=== PATIENT | female | born 1945 | race Caucasian/White ===

== ENCOUNTER 2016-12-06 18:00 | Inpatient (IN) | payer OTHER ==
[~2016-12-06] VITALS: Ht 165.1 cm; Wt 48.1 kg
[2016-12-06] MEDS ORDERED: LANTUS SOLOS100 U/M1 SQ (20:24)
[2016-12-06] MEDS ORDERED: GLIPIZIDE2.5 M1 PO (20:24)
[2016-12-06] MEDS ORDERED: SIMVASTATIN20 M1 PO (20:25)
[2016-12-06] MEDS ORDERED: OMEPRAZOLE40 M1 PO (20:25)
[2016-12-06 21:04] LABS: BASOPHIL % 0.1 % (0-2); PLATELET COUNT 228 x10^3mcL (130-400); RED CELL DISTRIBUTION WIDTH 14.1 % (11.5-14.5)
[2016-12-06 21:17] LABS: CALCIUM 9.4 mg/dL (8.5-10.1); CHLORIDE SERUM 104 mmol/L (98-107); CREATININE SERUM 2.6 mg/dL (0.6-1.0); GLUCOSE SERUM 296 mg/dL (74-106); POTASSIUM SERUM 3.3 mmol/L (3.5-5.1); SODIUM SERUM 140 mmol/L (136-145)
[2016-12-06 21:20] LABS: ALBUMIN 3.8 g/dL (3.4-5.0); ALKALINE PHOSPHATASE 90 U/L (46-116); ALT/SGPT 25 U/L (14-59); AST/SGOT 27 U/L (15-37); BILIRUBIN TOTAL 0.78 mg/dL (0.20-1.00); TOTAL PROTEIN, SERUM 7.6 g/dL (6.4-8.2)
[2016-12-06 21:26] LABS: MAGNESIUM 2.2 mg/dL (1.8-2.4); PHOSPHOROUS 3.6 mg/dL (2.5-4.9)
[2016-12-06 21:28] LABS: FREE T4 1.4 ng/dL (0.76-1.46); FREE THYROXINE INDEX 3.9 ug/dL (1.4-4.5); T4(THYROXINE) 11.7 ug/dL (4.7-13.3)
[2016-12-06 21:29] LABS: CHOLESTEROL/HDL RATIO 1.9
[2016-12-06 21:38] VITALS: BP 162/83
[2016-12-06 21:44] LABS: T3 TOTAL 0.78 ng/mL
[2016-12-06 22:10] VITALS: BP 162/83
[2016-12-06 22:34] LABS: UA SPECIFIC GRAVITY <=1.005 (1.005-1.035); microscopic required? YES; urine erythrocyte 1+ (NEGATIVE)
[2016-12-06 23:08] LABS: AMPHETAMINE QUAL UR NONE DETECTED (NEG <=1000)
[2016-12-07 05:19] VITALS: BP 141/74
[2016-12-07 06:35] LABS: BASOPHIL % 0.2 % (0-2); PLATELET COUNT 210 x10^3mcL (130-400); RED CELL DISTRIBUTION WIDTH 13.6 % (11.5-14.5)
[2016-12-07 06:38] LABS: CALCIUM 8.9 mg/dL (8.5-10.1); CHLORIDE SERUM 106 mmol/L (98-107); CREATININE SERUM 2.3 mg/dL (0.6-1.0); GLUCOSE SERUM 203 mg/dL (74-106); MAGNESIUM 2.1 mg/dL (1.8-2.4); PHOSPHOROUS 4.2 mg/dL (2.5-4.9); POTASSIUM SERUM 3.5 mmol/L (3.5-5.1); SODIUM SERUM 141 mmol/L (136-145)
[2016-12-07 08:16] VITALS: BP 136/75
[2016-12-07 11:14] VITALS: BP 121/68
[2016-12-07 17:15] VITALS: BP 111/63
[2016-12-07 20:33] VITALS: BP 85/48
[2016-12-08 05:12] VITALS: BP 135/73
[2016-12-08 10:00] VITALS: BP 119/63
[2016-12-08 14:00] VITALS: BP 114/57
[2016-12-08 18:07] VITALS: BP 137/71
[2016-12-08 21:28] VITALS: BP 103/60
[2016-12-09 05:42] VITALS: BP 107/55
[2016-12-09 06:42] LABS: CALCIUM 7.8 mg/dL (8.5-10.1); CARBON DIOXIDE 24.5 mmol/L (21-32); CHLORIDE SERUM 111 mmol/L (98-107); CREATININE SERUM 2.1 mg/dL (0.6-1.0); GLUCOSE SERUM 156 mg/dL (74-106); MAGNESIUM 1.9 mg/dL (1.8-2.4); PHOSPHOROUS 2.9 mg/dL (2.5-4.9); SODIUM SERUM 144 mmol/L (136-145)
[2016-12-09 07:35] LABS: BASOPHIL % 0.3 % (0-2); PLATELET COUNT 172 x10^3mcL (130-400); RED CELL DISTRIBUTION WIDTH 14.4 % (11.5-14.5)
[2016-12-09 09:48] VITALS: BP 96/54
[2016-12-09 11:05] VITALS: BP 103/55
[2016-12-09 17:49] VITALS: BP 149/60
[2016-12-09 17:51] VITALS: BP 101/45
[2016-12-09 22:41] VITALS: BP 146/77
[2016-12-10 05:14] VITALS: BP 114/71
[2016-12-10 06:04] LABS: BASOPHIL % 0.1 % (0-2); PLATELET COUNT 171 x10^3mcL (130-400); RED CELL DISTRIBUTION WIDTH 14.2 % (11.5-14.5)
[2016-12-10 06:25] LABS: CALCIUM 7.9 mg/dL (8.5-10.1); CARBON DIOXIDE 19.3 mmol/L (21-32); CHLORIDE SERUM 109 mmol/L (98-107); CREATININE SERUM 1.9 mg/dL (0.6-1.0); GLUCOSE SERUM 214 mg/dL (74-106); MAGNESIUM 1.7 mg/dL (1.8-2.4); PHOSPHOROUS 3.2 mg/dL (2.5-4.9); POTASSIUM SERUM 3.9 mmol/L (3.5-5.1); SODIUM SERUM 141 mmol/L (136-145)
[2016-12-10 09:17] VITALS: BP 141/60
[2016-12-10 13:18] VITALS: BP 146/73
[2016-12-10 17:06] VITALS: BP 120/68
[2016-12-10 21:18] VITALS: BP 106/50
[2016-12-11 06:11] LABS: CALCIUM 7.7 mg/dL (8.5-10.1); CARBON DIOXIDE 20.6 mmol/L (21-32); CHLORIDE SERUM 107 mmol/L (98-107); CREATININE SERUM 1.9 mg/dL (0.6-1.0); GLUCOSE SERUM 183 mg/dL (74-106); MAGNESIUM 2.5 mg/dL (1.8-2.4); PHOSPHOROUS 2.3 mg/dL (2.5-4.9); POTASSIUM SERUM 3.7 mmol/L (3.5-5.1); SODIUM SERUM 138 mmol/L (136-145)
[2016-12-11 06:47] VITALS: BP 117/61
[2016-12-11 07:07] LABS: BASOPHIL % 0.2 % (0-2); PLATELET COUNT 171 x10^3mcL (130-400); RED CELL DISTRIBUTION WIDTH 14.1 % (11.5-14.5)
[2016-12-11 10:05] VITALS: BP 101/50
[2016-12-11 14:06] VITALS: BP 129/85
[2016-12-11 17:38] VITALS: BP 120/61
[2016-12-11 21:56] VITALS: BP 128/65; BP 142/70
[2016-12-12 06:03] VITALS: BP 121/64
[2016-12-12 06:48] LABS: BASOPHIL % 0.3 % (0-2); PLATELET COUNT 195 x10^3mcL (130-400); RED CELL DISTRIBUTION WIDTH 14.1 % (11.5-14.5)
[2016-12-12 06:59] LABS: CALCIUM 8.2 mg/dL (8.5-10.1); CARBON DIOXIDE 22.3 mmol/L (21-32); CHLORIDE SERUM 104 mmol/L (98-107); CREATININE SERUM 1.8 mg/dL (0.6-1.0); GLUCOSE SERUM 198 mg/dL (74-106); MAGNESIUM 2.2 mg/dL (1.8-2.4); PHOSPHOROUS 2.5 mg/dL (2.5-4.9); POTASSIUM SERUM 4.4 mmol/L (3.5-5.1); SODIUM SERUM 130 mmol/L (136-145)
[2016-12-12 09:00] VITALS: BP 127/63
[2016-12-12] MEDS ORDERED: ROC1I IV (14:15)
[2016-12-12] MEDS ORDERED: NORCO1 TA2 PO (14:23)
[2016-12-12 14:59] VITALS: BP 127/63
[2016-12-12 15:33] VITALS: BP 135/75
== END 2016-12-12 15:39 | DRG 492 ==
LOC: ED 18:00 → DU 20:12 → MU 12-10 08:44
PROVIDERS: Emergency Medicine; Neuromusculoskeletal Medicine, Sports Medicine; ADMIT Family Medicine Sports Medicine
PROC: 0HQ1XZZ Repair Face Skin, External Approach (ICD-10-PCS; 2016-12-06)
PROC: 0PUD0JZ Supplement Left Humeral Head with Synthetic Substitute, Open Approach (ICD-10-PCS; 2016-12-09)
PROC: 0PSD04Z Reposition Left Humeral Head with Internal Fixation Device, Open Approach (ICD-10-PCS; principal; 2016-12-09 13:30)
DX: S42.212A Unspecified displaced fracture of surgical neck of left humerus, initial encounter for closed fracture (principal); N17.0 Acute kidney failure with tubular necrosis; Z68.1 Body mass index [BMI] 19.9 or less, adult; N39.0 Urinary tract infection, site not specified; D68.69 Other thrombophilia; S01.81XA Laceration without foreign body of other part of head, initial encounter; E11.65 Type 2 diabetes mellitus with hyperglycemia; E87.6 Hypokalemia; M81.0 Age-related osteoporosis without current pathological fracture; I10 Essential (primary) hypertension; D64.9 Anemia, unspecified; Z79.4 Long term (current) use of insulin; W18.2XXA Fall in (into) shower or empty bathtub, initial encounter; Y93.E1 Activity, personal bathing and showering; Y92.002 Bathroom of unspecified non-institutional (private) residence as the place of occurrence of the external cause
CPT/HCPCS: 82962; 83880; 84439; 94150; 97110-GP; 97116-GP; 97530-GP; C1713; C9359; J0690; J0696; J1644; J2001; J2270; J2405; J2704; J3010; J3475; J3490; J7030; J7050; J7120; P9016; Q0092; Q0162; Q0163